=== PATIENT | female | born 1940 | race Caucasian/White ===

== ENCOUNTER 2017-10-07 12:24 | Observation (INO) | payer MEDICARE, OTHER ==
[~2017-10-07] VITALS: Ht 152.4 cm; Wt 75.3 kg
[~2017-10-07 12:24] MED LIST: ALLOPURINOL 10100 M1 PO; ASPIRIN325 PO; LISINOPRIL-HCT1 EAC2 PO; SYNTHROID150 MCG PO; ZOCOR 20 MG TAB20 M1 PO
[2017-10-07 12:30] VITALS: BP 182/78
[2017-10-07 12:42] LABS: ABSOLUTE BASOPHILS 0.1 thou/uL (0.0-0.2); ABSOLUTE EOSINOPHILS 0.1 thou/uL (0.0-0.7); ABSOLUTE LYMPHOCYTES 1.1 thou/uL (0.8-5.3); ABSOLUTE MONOCYTES 0.4 thou/uL (0.0-1.2); ABSOLUTE NEUTROPHILS 4.1 thou/uL (1.6-8.1); EOSINOPHILS 1.2 %; HEMATOCRIT 43.6 % (37.0-47.0); HEMOGLOBIN 14.7 gm/dL (12.0-15.0); LYMPHOCYTES 19.7 %; MCH 28.8 pg (26.0-34.0); MCHC 33.6 g/dL (28.0-37.0); MCV 85.6 fL (80.0-100.0); MONOCYTES 6.6 %; MPV 8.2 fl. (7.2-11.1); NUCLEATED RBCS 0 /100WBC; PLATELET COUNT* 181 thou/uL (150-400); POLYS 71.5 %; RBC 5.09 mil/uL (4.20-5.00); RDW-CV 14.6 % (10.5-14.5); WBC 5.8 thou/uL (4.0-11.0)
[2017-10-07 12:50] LABS: ANION GAP 4 mmol/L (7-16); BUN 19 mg/dL (7-18); CHLORIDE 103 mmol/L (98-107); CO2 32 mmol/L (21-32); CREATININE 1.1 mg/dL (0.6-1.3); GLUCOSE 104 mg/dL (70-99); POTASSIUM 3.3 mmol/L (3.5-5.1); SODIUM 139 mmol/L (136-145)
[2017-10-07 12:53] LABS: APTT 25.7 Seconds (25.0-31.3); PROTIME 9.8 Seconds (9.20-11.50)
[2017-10-07 12:57] LABS: ALBUMIN 3.9 g/dL (3.4-5.0); ALKALINE PHOSPHATASE 81 U/L (46-116); SGOT 20 U/L (15-37); SGPT 19 U/L (30-65); TOTAL BILIRUBIN 0.6 mg/dL (<0.1-1.0); TROPONIN-I LEVEL <0.06 ng/mL (<0.06)
--- NOTE | 2017-10-07 16:22 | EKG ---
[place] [address] ELECTROCARDIOGRAM REPORT Name: YUNIOR MATAMOROS Room: [place] [address] ADM IN [facility].#: [id number] Admission: 10/07/17 Attend Phys: James Diego MD Discharge: Date of : 44 Report #: [id number] THIS REPORT FOR: //name// [facility] ED Test Date: 2017-10-07 Test Time: 12:48:28 Pat Name: YUNIOR MATAMOROS Department: Room: Gender: F [place] [facility] [place] 1940 Requested By: Jose De Jesus Santiago Order Number: [id number] MD: Deandre Shah Measurements Intervals [place] Rate: 62 P: 53 DC: 156 QRS: -27 QRSD: 91 T: 53 QT: 424 QTc: 431 Interpretive Statements Sinus rhythm Borderline left axis deviation Minimal ST depression, lateral leads Compared to ECG 04/23/2011 12:32:18 ST (T wave) deviation now present Electronically Signed On 10-07-2017 16:22:38 CDT by Deandre Shah [email or web address] <ELECTRONICALLY SIGNED> By: Deandre Shah MD, [facility] 10/07/17 1622 1248 1248 Deandre Shah MD, [facility] /EPI
[2017-10-07 17:57] VITALS: BP 155/69
[2017-10-07] MEDS ORDERED: SYNTHROID150 MCG PO (18:23)
[2017-10-07] MEDS ORDERED: LOSARTAN-HCTZ1 EAC2 PO (18:24)
[2017-10-07] MEDS ORDERED: TOPROL XL25 MG PO (18:24)
[2017-10-07] MEDS ORDERED: POTASSIUM20 PO (18:25)
[2017-10-07 18:37] VITALS: BP 186/74
--- NOTE | 2017-10-07 19:03 | 2DMMODE ---
[place] [address] 2 D/M-MODE ECHOCARDIOGRAM Name: YUNIOR MATAMOROS Room: [address] IN [facility]#: [id number] Admission: 10/07/17 Attend Phys: James Diego, Discharge: Date of : 44 Date of Service: 10/07/17 1903 Report #: [id number] THIS REPORT FOR: //name// APPROVED REPORT Study performed: 10/07/2017 16:06:08 EXAM: Comprehensive 2D, Doppler, and color-flow Echocardiogram, Bubble Study Patient Location: In-Patient Room #: ER 16 BSA: 1.69 HR: 60 bpm BP: 120/82 mmHg Other Information Study Quality: Excellent Indications CVA/TIA Echo Enhancing Agent Indication: Rule Out Septal Defect Agent(s) / Amount(s) Used: Agitated Saline 10 cc 2D Dimensions IVSd: 10.12 (7-11mm) LVOT Diam: 19.34 (18-24mm) LVDd: 43.88 mm PWd: 6.60 (7-11mm) Ascending Ao: 28.62 (22-36mm) LVDs: 19.90 (25-40mm) Aortic Root: 22.54 mm Volumes Left Atrial Volume (Systole) LA ESV Index: 22.20 mL/m2 Aortic Valve AoV Peak Bebeto.: 1.25 m/s AO Peak Gr.: 6.22 mmHg LVOT Max P.14 mmHg AO Mean Gr.: 3.25 mmHg LVOT Mean P.87 mmHg LVOT Max V: 1.02 m/s AO V2 VTI: 28.86 cm LVOT Mean V: 0.62 m/s GANESH (VTI): 2.42 cm2 LVOT V1 VTI: 23.82 cm AI [place]: 2.43 m/s2 AI PHT: 539.33 [place] [address] 2 D/M-MODE ECHOCARDIOGRAM Name: YUNIOR MATAMOROS Room: [address] IN [facility].#: [id number] Admission: 10/07/17 Attend Phys: James Diego, Discharge: Date of : 44 Date of Service: 10/07/17 1903 Report #: [id number] Mitral Valve E/A Ratio: 0.72 MV Decel. Time: 254.85 ms MV E Max Bebeto.: 0.48 m/s MV PHT: 73.91 ms MVA (PHT): 2.98 cm2 TDI E/Lateral E': 6.00 E/Medial E': 4.80 Medial E' Bebeto.: 0.10 m/s Lateral E' Bebeto.: 0.08 m/s Pulmonary Valve PV Peak Bebeto.: 0.93 m/s PV Peak Gr.: 3.43 mmHg Tricuspid Valve TR Peak Gr.: 29.10 mmHg RVSP: 34.10 mmHg Left Ventricle The left ventricle is normal size. There is normal LV segmental wall motion. There is normal left ventricular wall thickness. Left ventricular systolic function is normal. The left ventricular ejection fraction is within the normal range. LVEF is 55-60%. Grade I - abnormal relaxation pattern. Right Ventricle The right ventricle is normal size. The right ventricular systolic function is normal. Atria The left atrium size is normal. Injection of bubbles documented no right to left shunt. The right atrium size is normal. Aortic Valve The aortic valve is normal in structure. Mild aortic regurgitation. There is no aortic valvular stenosis. Mitral Valve The mitral valve is normal in structure. Mild mitral regurgitation. No evidence of mitral valve stenosis. Tricuspid Valve The tricuspid valve is normal in structure. Mild tricuspid regurgitation. The RVSP is __34.1 [place] [address] 2 D/M-MODE ECHOCARDIOGRAM Name: YUNIOR MATAMOROS Room: [address] IN [facility]#: [id number] Admission: 10/07/17 Attend Phys: James Diego, Discharge: Date of : 44 Date of Service: 10/07/17 1903 Report #: [id number] Pulmonic Valve The pulmonary valve is normal in structure. There is no pulmonic valvular regurgitation. Great Vessels The aortic root is normal in size. IVC is normal in size and collapses with >50% inspiration Pericardium There is no pericardial effusion. <Conclusion> LVEF is 55-60%. Injection of bubbles documented no right to left shunt. Mild aortic regurgitation. Mild mitral regurgitation. <ELECTRONICALLY SIGNED> By: Deandre Shah MD, FACC 10/07/171902 02 02 Deandre Shah MD, FACC /INF
--- NOTE | 2017-10-07 19:08 | NUR ---
PT ARRIVED TO ROOM 231 AT APPROX 1800.A/O X4, DENIES PAIN. ADMISSION DONE CHARTED, REVIEWED HOME MEDS, NIH=0, PT UP AD CATHY IN ROOM. BEDSIDE SWALLOW PASSED. FULL ASSESMENT DONE CHARTED
[2017-10-07 20:00] VITALS: BP 142/65
[2017-10-08] VITALS: BP 182/63
[2017-10-08 02:07] LABS: GLYCOHEMOGLOBIN (HGB A1C) 5.1 % (4.8-5.6)
--- NOTE | 2017-10-08 03:18 | NUR ---
ASSUMED PT CARE AT 1930, PT IS A&OX4, PT IS TRACING NSR/SB ON THE MONTIOR, ON RA SATTING MID TO HIGH 90'S. PT HAS IVF INFUSING PER MAR. NIH COMPLATED CHARTED. PT DENIES ANY PAIN OR NEEDS AT THIS TIME. BED IN LOW POSITION, CALL LIGHT IN REACH, HOUROLY ROUNDING COMPLETED FOR PT SAFETY.
[2017-10-08 04:00] VITALS: BP 117/60
[2017-10-08 04:39] LABS: ABSOLUTE EOSINOPHILS 0.1 thou/uL (0.0-0.7); ABSOLUTE LYMPHOCYTES 1.2 thou/uL (0.8-5.3); ABSOLUTE MONOCYTES 0.4 thou/uL (0.0-1.2); ABSOLUTE NEUTROPHILS 3.2 thou/uL (1.6-8.1); BASOPHILS 0.5 %; EOSINOPHILS 2.4 %; HEMATOCRIT 37.3 % (37.0-47.0); LYMPHOCYTES 25.3 %; MCH 28.7 pg (26.0-34.0); MCHC 34.1 g/dL (28.0-37.0); MCV 84.1 fL (80.0-100.0); MONOCYTES 7.7 %; MPV 8.5 fl. (7.2-11.1); NUCLEATED RBCS 0 /100WBC; PLATELET COUNT* 145 thou/uL (150-400); POLYS 64.1 %; RBC 4.44 mil/uL (4.20-5.00); RDW-CV 14.2 % (10.5-14.5); WBC 4.9 thou/uL (4.0-11.0)
[2017-10-08 04:56] LABS: HEMOGLOBIN 12.7 gm/dL (12.0-15.0)
[2017-10-08 05:16] LABS: ANION GAP 6 mmol/L (7-16); BUN 15 mg/dL (7-18); CALCIUM 8.4 mg/dL (8.5-10.1); CHLORIDE 107 mmol/L (98-107); CHOLESTEROL 169 mg/dL (<200); CO2 28 mmol/L (21-32); CREATININE 0.9 mg/dL (0.6-1.3); GLUCOSE 96 mg/dL (70-99); HDL CHOLESTEROL 46 mg/dL (>40); LDL CHOLESTEROL 99 mg/dL (<100); POTASSIUM 3.6 mmol/L (3.5-5.1); SODIUM 141 mmol/L (136-145); TC:HDL 3.7 Ratio (Not establshd); TRIGLYCERIDE 121 mg/dL (<150); VLDL 24 mg/dL (<40)
[2017-10-08 05:23] LABS: SERUM ASSESSMENT CLEAR
[2017-10-08 08:17] VITALS: BP 180/67
--- NOTE | 2017-10-08 10:38 | NUR ---
ASSUMED PT CARE AT 0730, FULL ASSESMENT DONE CHARTED. PT A/O X4, NIH=0, PT DENIES PAIN, VSS, SB ON THE MONITOR. NEUROLOGY IN TO SEE PT, RECOMMENDING PT SEE OPTHAMOLOGIST FOR OPTHALMIC MIGRAINE AND CHECKUP. PT HOPEFUL TO GO HOME TODAY. WILL CONTINUE TO MONITOR.
[2017-10-08 11:56] VITALS: BP 151/61
[2017-10-08] MEDS ORDERED: NORVASC5 MG PO (12:33)
[2017-10-08] MEDS ORDERED: B12INJ IM (12:33)
[2017-10-08] MEDS ORDERED: LIPITOR40 MG PO (12:34)
[2017-10-08 13:30] VITALS: BP 151/61
--- NOTE | 2017-10-08 13:43 | NUR ---
MET WITH PT TO DISCUSS HOME SITUATION/DC PLANNING. PT LIVES WITH SPOUSE. STATES SHE IS ACTIVE AND INDEPENDENT. USES NO EQUIPMENT. PLANS TO RETURN HOME WITH SPOUSE. PT STATES SHE HAS 2 DTRS THAT LIVE CLOSEBY THAT ARE SUPPORTIVE. PT DENIES DC NEEDS
[2017-10-08 15:25] VITALS: BP 136/57
--- NOTE | 2017-10-08 16:55 | NUR ---
ORDERS RECEIVED HOWEVER PT DC'ED PRIOR TO P.T. EVALUATION. NOHEMY SOSA,MPT
--- NOTE | 2017-10-15 13:48 | CON ---
[address] [address] CONSULTATION Name: SHILOHYUNIOR D Room: [address] Negrita Cadet#: [id number] Admission: 10/07/17 Attend Phys: James Diego MD Discharge: 10/08/17 Date of : 44 Report #: [id number] THIS REPORT FOR: //name// CC: James Diego Adriana Mejia DATE OF SERVICE: 10/08/2017 HISTORY OF PRESENT ILLNESS: This is a 77-year-old female patient who was admitted with visual disturbances. The patient indicates that she thought she was seeing things from a kaleidoscope. It happened with both eyes. Some of the records indicate that she may have some word finding difficulty. She is not sure about that. The symptoms were moderately severe. They came spontaneously without any trauma. REVIEW OF SYSTEMS: Indicate that she does have hypertension. She takes medications for that, but her hypertensions appear to be uncontrolled. She is on aspirin as well as on . She has a prior history of hysterectomy, hematuria, gallbladder surgery. She feels back to normal and does not look like she has any new ENT, cardiac, respiratory, GI, , musculoskeletal, constitutional, dermatological, hematological, psychiatric, throat or allergic symptom associated with present symptomatology. PAST MEDICAL HISTORY: Positive for some hypertension. FAMILY HISTORY: Negative for early age strokes. SOCIAL HISTORY: She does not smoke. She drinks alcohol, but only on special occasions. PHYSICAL EXAMINATION: Indicate that she is alert, responsive, able to follow simple and complex command. She believes her speech, concentration, fund of knowledge and memory is at her baseline. Cranial nerve examination 2-12 is unremarkable. She does not appear to have papilledema, although I could not have a very good look at the patient's fundus. She has symmetrical strength, sensation, reflexes and tone in all 4 extremities. There is no meningeal sign. There is no carotid bruit. She has no cerebellar signs. She is reasonably well-developed individual who does not have any dysmorphic features of eyes, ears and face. Her vision and hearing looks adequate. She has no thyroid mass. Her pulses are palpable. She has no edema, cyanosis or jaundice. Blood pressure is 180/67. Her blood pressure has fluctuated, but a lot of time it has stayed high. LABORATORY DATA: Indicate a normal white count of 4.9. Her LDL is 99. Her vitamin B12, the last time it was checked was abnormal in 2010 and I [place] [address] CONSULTATION Name: YUNIOR MATAMOROS Room: [address] Negrita Cadet#: [id number] Admission: 10/07/17 Attend Phys: James Diego MD Discharge: 10/08/17 Date of : 44 Report #: [id number] IMPRESSION: It is possible this patient had ophthalmic migraine. If she had speech difficulty, this can also be transient ischemic attack. She did have some hypertension and part of it may be hypertensive encephalopathy. I reviewed the workup in this patient and she had a fairly extensive workup and her MRI was unremarkable and so was her MRA. Her sed rate was normal, making it unlikely that it is temporal arteritis. RECOMMENDATIONS: 1. Repeat B12 and if low, supplement B12. 2. Repeat TSH. 3. Control the hypertension and the patient should take her blood pressure on a regular basis. 4. If this workup is okay from neurological perspective, she might be dismissed, but her blood pressure need to be controlled and her homocysteine and cardiolipin antibody should be checked as an outpatient as we cannot check it inpatient because of hospital regulation. Thank you very much for this referral. The patient was discussed with the nurses looking after this patient and with herself in detail. <ELECTRONICALLY SIGNED> By: Emanuel Moreno MD 10/15/17 1348 1014 1908Emanuel Moreno MD /nt
== END 2017-10-08 16:24 | disposition home or self-care (01) ==
LOC: M.ERS 12:24 → M.2W 13:13 → M.TBA-ER 13:13 → M.2W 18:08
PROVIDERS: Family Medicine; ADMIT Internal Medicine
DX: H53.9 Unspecified visual disturbance (principal); G45.9 Transient cerebral ischemic attack, unspecified; I67.4 Hypertensive encephalopathy; I10 Essential (primary) hypertension; E87.6 Hypokalemia; Z72.89 Other problems related to lifestyle; Z90.710 Acquired absence of both cervix and uterus; Z98.890 Other specified postprocedural states

== ENCOUNTER 2020-10-25 11:56 | Emergency (ER) | payer MEDICARE, OTHER ==
[~2020-10-25] VITALS: Ht 165.1 cm; Wt 65.8 kg
[~2020-10-25 11:56] MED LIST changes: +B12INJ IM; +LIPITOR40 MG PO; +LOSARTAN-HCTZ1 EAC2 PO; +NORVASC5 MG PO; +POTASSIUM20 PO; +TOPROL XL25 MG PO
[2020-10-25] MEDS ORDERED: NORCO5 PO ×2 (13:15→13:19)
[2020-10-25 13:29] VITALS: BP 150/65
== END 2020-10-25 13:30 | disposition home or self-care (01) ==
LOC: M.ERS 11:56
DX: S62.622A Displaced fracture of middle phalanx of right middle finger, initial encounter for closed fracture (principal); I10 Essential (primary) hypertension; Z90.711 Acquired absence of uterus with remaining cervical stump; Z98.890 Other specified postprocedural states; Z86.73 Personal history of transient ischemic attack (TIA), and cerebral infarction without residual deficits; Z79.82 Long term (current) use of aspirin; Z79.899 Other long term (current) drug therapy; Z88.5 Allergy status to narcotic agent; Z88.2 Allergy status to sulfonamides; W23.0XXA Caught, crushed, jammed, or pinched between moving objects, initial encounter; Y93.89 Activity, other specified; Y92.89 Other specified places as the place of occurrence of the external cause; Y99.8 Other external cause status